=== PATIENT | male | born 1990 | race Hispanic/Latino ===

== ENCOUNTER 2021-04-23 17:25 | Emergency (ER) | payer OTHER ==
[~2021-04-23] VITALS: Ht 180.3 cm; Wt 97.1 kg
[2021-04-23 17:26] VITALS: BP 133/88
[2021-04-23] MEDS ORDERED: ACETAMINOPHEN 500 MG TABLET PO ONE (17:30)
[2021-04-23] MEDS ORDERED: ACET-66 PO (18:04)
[2021-04-23] MEDS ORDERED: CYCL10TA16 PO (18:04)
== END 2021-04-23 18:37 | disposition home or self-care (01) ==
LOC: EDH 17:25
DX: R51.9 Headache, unspecified (principal); M54.2 Cervicalgia; Z79.899 Other long term (current) drug therapy
CPT/HCPCS: 70450; 72125